=== PATIENT | female | born 1980 ===

== ENCOUNTER 2018-05-16 08:23 | Emergency (ER) | payer OTHER ==
[2018-05-16] MEDS ORDERED: ANTIVERT PO ONE (09:29)
[2018-05-16] MEDS ORDERED: ZOFRAN IV ONE (09:29)
[2018-05-16] MEDS ORDERED: NACL 0.9% 500 ML 500 ML IV ONE (09:29)
--- NOTE | 2018-05-16 09:34 | Emergency Department Report ---
HPI - General Chief Complaint: Nausea/Vomiting/Diarrhea Time Seen by Provider: 05/16/18 09:18 - [facility] HPI: Room 18 The patient is a 38-year-old female presenting with chief complaint of nausea and vomiting. Patient's symptoms began yesterday with nausea and vomiting and dizziness with movement. Patient denies diarrhea. Patient denies headache chest pain or abdominal pain. The patient's last meal part to the onset of her symptoms included a hammer soup that was eaten by others. No one else developed nausea and vomiting. The patient states her symptoms began approximately 4 hours after her last meal. Location: [See above] Duration: Onset yesterday Quality: Nausea Severity: Moderate Modifying factors: [see above] Context: [see above] Mode of transportation: [not driving] ED Past Medical Hx - Past Medical History Previous Medical History?: Yes - Surgical History Past Surgical History?: Yes Hx Open Heart Surgery: Yes (cardiac valve repair/replacement?) - Family History Family history: no significant - Social History Smoking Status: Never Smoker Substance Use Type: None - Medications Home Medications: Home Medications Medication Instructions Recorded Confirmed Last Taken Type Meclizine [Antivert] 25 mg PO TID PRN #20 tablet 05/16/18 Unknown Rx Ondansetron [Zofran ODT TAB] 8 mg PO Q8HR #20 tab.rapdis 05/16/18 Unknown Rx ED Review of Systems ROS: Stated complaint: N/V Other details as noted in HPI Constitutional: no symptoms reported Eyes: denies: eye pain ENT: denies: throat pain Respiratory: no symptoms reported Cardiovascular: denies: chest pain Endocrine: no symptoms reported Gastrointestinal: nausea, vomiting. denies: abdominal pain Genitourinary: denies: dysuria Musculoskeletal: denies: back pain Neurological: vertigo. denies: headache Physical Exam - Physical Exam Vital Signs: Vital Signs 05/16/18 08:28 Temperature 97.9 F Pulse Rate 65 Respiratory 16 Rate Blood Pressure 124/57 O2 Sat by Pulse 98 Oximetry Physical Exam: GENERAL: The patient is well-developed well-nourished female lying on stretcher with eyes closed appearing to be in mild discomfort. [] HEENT: Normocephalic. Atraumatic. Extraocular motions are intact. Patient has moist mucous membranes. No nystagmus NECK: Supple. Trachea midline CHEST/LUNGS: Clear to auscultation. There is no respiratory distress noted. HEART/CARDIOVASCULAR: Regular. There is no tachycardia. There is a 3/6 systolic murmur ABDOMEN: Abdomen is soft, nontender. Patient has normal bowel sounds. There is no abdominal distention. SKIN: There is no rash. There is no edema. There is no diaphoresis. NEURO: The patient is awake, alert, and oriented. The patient is cooperative. The patient has no focal neurologic deficits. The patient has normal speech. Cranial nerves II through XII grossly intact, no drift. No dysmetria noted with [id number] bilaterally MUSCULOSKELETAL: There is no evidence of acute injury. ED Course Vital Signs 05/16/18 08:28 Temperature 97.9 F Pulse Rate 65 Respiratory 16 Rate Blood Pressure 124/57 O2 Sat by Pulse 98 Oximetry - Reevaluation(s) Reevaluation #1: 05/16/18 12:11 Family states patient voiced she felt better after IV fluids ED Medical Decision Making - Lab Data Result diagrams: 05/16/18 09:40 05/16/18 09:40 Laboratory Tests 05/16/18 05/16/18 05/16/18 09:40 09:40 09:40 WBC 5.0 RBC 5.48 H Hgb 13.9 Hct 41.9 MCV 77 L MCH 25 L MCHC 33 RDW 13.8 Plt Count 216 Lymph % (Auto) 20.7 [place] % (Auto) 9.2 H Eos % (Auto) 0.2 Baso % (Auto) 0.5 Lymph # 1.0 L [place] # 0.5 Eos # 0.0 Baso # 0.0 Seg Neutrophils % 69.4 Seg Neutrophils # 3.5 PT INR APTT Sodium 134 L Potassium 4.5 Chloride 98.9 Carbon Dioxide 24 Anion Gap 16 BUN 10 Creatinine 0.6 L Estimated GFR > 60 BUN/Creatinine Ratio 17 Glucose 99 Calcium 8.8 Total Bilirubin 0.90 AST 18 ALT 15 Alkaline Phosphatase 37 Total Creatine Kinase 100 CK-MB (CK-2) 2.0 CK-MB (CK-2) Rel Index 2.0 Troponin T < 0.010 Total Protein 7.3 Albumin 4.2 Albumin/Globulin Ratio 1.4 Lipase 16 HCG, Qual Negative 05/16/18 09:40 WBC RBC Hgb Hct MCV MCH MCHC RDW Plt Count Lymph % (Auto) [place] % (Auto) Eos % (Auto) Baso % (Auto) Lymph # [place] # Eos # Baso # Seg Neutrophils % Seg Neutrophils # PT 20.5 H INR 1.71 H APTT 41.1 H Sodium Potassium Chloride Carbon Dioxide Anion Gap BUN Creatinine Estimated GFR BUN/Creatinine Ratio Glucose Calcium Total Bilirubin AST ALT Alkaline Phosphatase Total Creatine Kinase CK-MB (CK-2) CK-MB (CK-2) Rel Index Troponin T Total Protein Albumin Albumin/Globulin Ratio Lipase HCG, Qual - EKG Data -: EKG Interpreted by Fl EKG shows normal: sinus rhythm Rate: normal - EKG Data When compared to previous EKG there are: previous EKG unavailable Interpretation: nonspecific ST-T wave shashank (T-wave inversion in lead V2) - Radiology Data Radiology results: report reviewed (CT head), image reviewed (CT head) [facility] [address] [id number] Cat Scan Report Signed Patient: NIKKI MURILLO MR#: [id number] : 1980 Acct:[id number] Age/Sex: 38 / F ADM Date: 05/16/18 Loc: ED Attending Dr: Ordering Physician: CATALINO FERNANDES MD Date of Service: 05/16/18 Procedure(s): CT head/brain wo con Accession Number(s): [id number] cc: CATALINO FERNANDES MD CT HEAD WITHOUT CONTRAST: HISTORY: Dizziness, nausea and vomiting. TECHNIQUE: Sequential 2.5mm CT images. COMPARISON: none. FINDINGS: Cerebral Parenchyma: Within normal limits. 5 mm dilated perivascular space versus focal chronic infarct is noted in the left anterior thalamus on image 25. Cerebellum: Within normal limits. Brainstem: Within normal limits. Ventricles: Normal. Sella: Normal. Extra-axial spaces: Normal. Basal Cisterns: Normal. Intracranial Hemorrhage: None. Midline Shift: None. Calvarium: Normal. Sinuses: Normal. Mastoid Air Cells: Normal. Visualized Orbits: Normal. IMPRESSION: No acute intracranial process is identified. Transcribed By: TTR Dictated By: TANK SALES JR, MD Electronically Authenticated By: TANK SALES JR, MD Signed Date/Time: 05/16/18 1013 DD/ 1013 TD/TT: 05/16/18 1013 - Differential Diagnosis vertigo, ICH, gastritis, pancreatitis Critical care attestation.: If time is entered above; I have spent that time in minutes in the direct care of this critically ill patient, excluding procedure time. ED Disposition Clinical Impression: Vertigo Disposition: DC-01 TO HOME OR SELFCARE Is pt being admited?: No Does the pt Need Aspirin: No Condition: Stable Instructions: Vertigo (ED) Additional Instructions: Return to the emergency department immediately should you develop worsening symptoms, fever, inability to tolerate food or liquid or any other concerns. Prescriptions: Meclizine [Antivert] 25 mg PO TID PRN #20 tablet PRN Reason: Vertigo Ondansetron [Zofran ODT TAB] 8 mg PO Q8HR #20 tab.gopaldis Referrals: NIRALI GARZA [Primary Care Provider] - 3-5 Days YANET DUNBAR MD [Staff Physician] - 3-5 Days (Dr. Dunbar is a neurologist. Please follow up with him for further evaluation) Time of Disposition: 12:13
[2018-05-16 10:05] LABS: Basophils % (Auto) 0.5 % (0.0-1.8); Eosinophils % (Auto) 0.2 % (0.0-4.3); Hematocrit 41.9 % (30.3-42.9); Hemoglobin 13.9 gm/dl (10.1-14.3); Lymphocytes % (Auto) 20.7 % (13.4-35.0); Mean Corpuscular HGB Conc 33 % (30-34); Mean Corpuscular Volume 77 fl (79-97); Monocytes # (Auto) 0.5 K/mm3 (0.0-0.8); Monocytes % (Auto) 9.2 % (0.0-7.3); Platelet Count 216 K/mm3 (140-440); Red Blood Count 5.48 M/mm3 (3.65-5.03); Red Cell Distribution Width 13.8 % (13.2-15.2)
--- NOTE | 2018-05-16 10:16 | Cat Scan Report ---
CT HEAD WITHOUT CONTRAST: HISTORY: Dizziness, nausea and vomiting. TECHNIQUE: Sequential 2.5mm CT images. COMPARISON: none. FINDINGS: Cerebral Parenchyma: Within normal limits. 5 mm dilated perivascular space versus focal chronic infarct is noted in the left anterior thalamus on image 25. Cerebellum: Within normal limits. Brainstem: Within normal limits. Ventricles: Normal. Sella: Normal. Extra-axial spaces: Normal. Basal Cisterns: Normal. Intracranial Hemorrhage: None. Midline Shift: None. Calvarium: Normal. Sinuses: Normal. Mastoid Air Cells: Normal. Visualized Orbits: Normal. IMPRESSION: No acute intracranial process is identified.
[2018-05-16 10:24] LABS: Alanine Aminotransferase 15 units/L (7-56); Albumin 4.2 g/dL (3.9-5); BUN/Creatinine Ratio 17; Blood Urea Nitrogen 10 mg/dL (7-17); Calcium 8.8 mg/dL (8.4-10.2); Hemolysis Index 15
[2018-05-16 10:25] LABS: INR 1.71 (0.87-1.13)
[2018-05-16 10:26] LABS: Partial Thromboplastin Time 41.1 Sec. (24.2-36.6)
[2018-05-16 11:27] VITALS: BP 108/65
[2018-05-16] MEDS ORDERED: NACL 0.9% 1000 ML 1,000 ML IV ONE (12:10)
== END 2018-05-16 14:15 | disposition home or self-care (01) ==
LOC: ED 08:23
DX: R42 Dizziness and giddiness (principal); R11.2 Nausea with vomiting, unspecified
CPT/HCPCS: 36415; 70450; 80053; 82550; 82553; 83690; 84484; 84703; 85025; 85610; 85730; 93005; 93010; 96361; 96374; 99284; J2405; J7030; J7040

== ENCOUNTER 2019-08-11 14:04 | Emergency (ER) | payer OTHER ==
[2019-08-11 14:14] VITALS: BP 124/85
--- NOTE | 2019-08-11 15:05 | Emergency Department Report ---
ED Recheck HPI - General Chief Complaint: Recheck/Abnormal Lab/Rx Stated Complaint: RAPID HEART BEAT Time Seen by Provider: 08/11/19 15:04 Source: patient Mode of arrival: Ambulatory Limitations: Language Barrier - History of Present Illness Initial Comments: Patient is a 39-year-old female that comes to the emergency room from [facility] to have her INR rechecked. I spoke with Dr. Austen jose and the INR was 4 in the office. They sent her to the ER for reevaluation. Patient has mild petechiae on her leg and some mild gingival bleeding. She is not tachycardic or hypotensive but she is pale. Patient has a mechanical mitral valve and has been on Coumadin since 2006. Her goal INR is 2.5-3.5. She takes no other medications on a daily basis. Patient has no external bleeding. She denies any abdominal pain. She denies hematuria. She denies bloody stools. Last menstrual period was 07/23/2019. Patient takes Coumadin daily she alternates between 7.5 and 5 mg. She is due for 7.5 tonight. Patient is alert and oriented with no focal deficit. MD Complaint: abnormal lab Symptoms Since Prior Visit: no new symptoms Associated Symptoms: none - Related Data Allergies Allergy/AdvReac Type Severity Reaction Status Date / Time No Known Allergies Allergy Unverified 05/16/18 11:14 ED Review of Systems ROS: Stated complaint: RAPID HEART BEAT Other details as noted in HPI Comment: All other systems reviewed and negative ED Past Medical Hx - Past Medical History Previous Medical History?: Yes - Surgical History Past Surgical History?: Yes Hx Open Heart Surgery: Yes (MECHANICAL MV [place]ACED [place] 2006) - Family History Family history: no significant - Social History Smoking Status: Never Smoker Substance Use Type: None ED Physical Exam - General Limitations: Language Barrier General appearance: alert, in no apparent distress - Head Head exam: Present: atraumatic, normocephalic - Eye Eye exam: Present: normal appearance - ENT ENT exam: Present: mucous membranes moist - Neck Neck exam: Present: normal inspection, other (mild gingival bleeding) - Respiratory Respiratory exam: Present: normal lung sounds bilaterally. Absent: respiratory distress - Cardiovascular Cardiovascular Exam: Present: regular rate, normal rhythm. Absent: systolic murmur, diastolic murmur, rubs, gallop - GI/Abdominal GI/Abdominal exam: Present: soft, normal bowel sounds - Extremities Exam Extremities exam: Present: normal inspection - Back Exam Back exam: Present: normal inspection - Neurological Exam Neurological exam: Present: alert, oriented X3 - Psychiatric Psychiatric exam: Present: normal affect, normal mood - Skin Skin exam: Present: warm, dry, intact, petechiae, pallor. Absent: rash ED Course Vital Signs 08/11/19 14:10 Temperature 97.9 F Pulse Rate 93 H Respiratory 16 Rate Blood Pressure 124/85 O2 Sat by Pulse 100 Oximetry - Reevaluation(s) Reevaluation #1: 08/11/19 1540 Blood pressure 104/68 with a map of 78, heart rate 74, oxygen saturation on room air 100%. ED Recheck MDM - Core Measures Measure Exclusions: not indicated - Differential Diagnosis Recheck of Abnormal Lab - Medical Decision Making discussed with Dr Ruslan huston at [facility] hold coumadin 2 days on take 5mg daily go to office in 1 week for recheck INR Hct is stable per [facility] Vital Signs 08/11/19 14:10 Temperature 97.9 F Pulse Rate 93 H Respiratory 16 Rate Blood Pressure 124/85 O2 Sat by Pulse 100 Oximetry Labs 08/11/19 08/11/19 08/11/19 14:58 14:58 14:58 WBC 13.4 H RBC 4.54 Hgb 9.9 L Hct 31.7 MCV 70 L MCH 22 L MCHC 31 RDW 14.5 Plt Count 519 H PT 44.3 H INR 4.78 H Sodium 137 Potassium 3.9 Chloride 97.3 L Carbon Dioxide 26 Anion Gap 18 BUN 12 Creatinine 0.8 Estimated GFR > 60 BUN/Creatinine Ratio 15 Glucose 99 Calcium 8.7 Total Bilirubin 0.40 AST 19 ALT 16 Alkaline Phosphatase 190 H Total Protein 7.9 Albumin 3.0 L Albumin/Globulin Ratio 0.6 Patient was given 1 L of normal saline while in the emergency room while we waited for her INR to return. Patient was pale. She denies chest pain or shortness of breath. Her hemoglobin was noted to be 9.9 and on prior ER visit was closer to 14. INR repeat was 4.78. The goal INR is 2.5-3.5. I have called Dr. Maurice. Hematocrit is unchanged over time from office notes. Patient is to hold Coumadin for 2 days. And then resume Coumadin at 5 mg daily and see his office on Saturday for recheck. She is also supposed to see a PCP to have her hemoglobin monitored. An supervisor customer services was used to be sure that the patient understands these discharge instructions. Patient being DC'd home with family members. She has written and verbal discharge instructions and verbalizes understanding. Critical care attestation.: If time is entered above; I have spent that time in minutes in the direct care of this critically ill patient, excluding procedure time. ED Disposition Clinical Impression: Supratherapeutic INR Disposition: DC- TO HOME OR SELFCARE Is pt being admited?: No Does the pt Need Aspirin: No Condition: Stable Instructions: Warfarin (By mouth) Additional Instructions: DO NOT TAKE COUMADIN/WARFARIN TODAY OR SATURDAY ON SATURDAY YOU WILL TAKE 5 MG - CONTINUE THIS DOSE DAILY NEXT SATURDAY SEE [facility] (WHERE YOU WERE TODAY) FOR INR RECHECK FOLLOW UP WITH PCP TO MONITOR YOUR HEMOGLOBIN TAKE THIS PAPER WITH YOU YOUR HGB TODAY WAS 9.9 AND IN 05/27 IT WAS 14 USE A SOFT TOOTH BRUSH AVOID HIGH RISK ACTIVITIES THAT WOULD MAKE YOU PRONE TO TYLENOL FOLLOW YOUR USUAL DIET- DO NOT VARY IT MUCH DAY TO DAY. THIS CAN AFFECT YOUR INR LEVEL Referrals: HARRY MATAMOROS MD [Staff Physician] - 3-5 Days MONALISA ALEJO MD [Staff Physician] - 3-5 Days Time of Disposition: 15:56
[2019-08-11 15:14] LABS: Hematocrit 31.7 % (30.3-42.9); Hemoglobin 9.9 gm/dl (10.1-14.3); Mean Corpuscular HGB Conc 31 % (30-34); Platelet Count 519 K/mm3 (140-440); Red Blood Count 4.54 M/mm3 (3.65-5.03); Red Cell Distribution Width 14.5 % (13.2-15.2)
[2019-08-11 15:19] LABS: Mean Corpuscular Volume 70 fl (79-97)
[2019-08-11 15:25] LABS: INR 4.78 (0.87-1.13)
[2019-08-11] MEDS ORDERED: SODIUM CHLORIDE 0.9% 1000 ML 1,000 ML IV ONE (15:32)
[2019-08-11 15:38] LABS: Alanine Aminotransferase 16 units/L (7-56); BUN/Creatinine Ratio 15; Blood Urea Nitrogen 12 mg/dL (7-17); Calcium 8.7 mg/dL (8.4-10.2); Hemolysis Index 0
[2019-08-11 16:22] LABS: Bacteria,Urine 2+ /HPF (Negative); Bilirubin,Urine NEG (Negative); Blood,Urine MOD (Negative); Color,Urine Straw (Yellow); HCG Qualitative,Urine Negative (Negative); Protein,Urine <15 mg/dL mg/dL (Negative); Urobilinogen,Urine < 2.0 mg/dL (<2.0)
== END 2019-08-11 17:56 | disposition home or self-care (01) ==
LOC: ED 14:04
DX: R79.1 Abnormal coagulation profile (principal)
CPT/HCPCS: 36415; 80053; 81001; 81025; 85027; 85610; 99283; J7030

== ENCOUNTER 2019-08-13 20:13 | Inpatient (IN) | payer OTHER ==
[2019-08-13 21:31] LABS: Hematocrit 30.5 % (30.3-42.9); Hemoglobin 9.8 gm/dl (10.1-14.3); Mean Corpuscular HGB Conc 32 % (30-34); Platelet Count 506 K/mm3 (140-440); Red Blood Count 4.42 M/mm3 (3.65-5.03); Red Cell Distribution Width 14.4 % (13.2-15.2)
[2019-08-13 21:34] LABS: Mean Corpuscular Volume 69 fl (79-97)
[2019-08-13 21:57] LABS: Alanine Aminotransferase 24 units/L (7-56); Albumin 3.5 g/dL (3.9-5); BUN/Creatinine Ratio 10; Blood Urea Nitrogen 7 mg/dL (7-17); Calcium 8.6 mg/dL (8.4-10.2); Hemolysis Index 3
[2019-08-13] MEDS ORDERED: SODIUM CHLORIDE 0.9% 1000 ML IV SOLN IV ONE (22:01)
[2019-08-13] MEDS ORDERED: CEFEPIME/NS 2 GM/100 ML 2 GM/100 ML BAG IV ONE (22:04)
--- NOTE | 2019-08-13 22:04 | Emergency Department Report ---
ED Fever HPI - General Chief Complaint: Weakness Stated Complaint: FEVER/SOB PUI?: Yes Time Seen by Provider: 08/13/19 21:46 Source: patient, recreation facilities supervisor Exam Limitations: language barrier - History of Present Illness Initial Comments: Patient is a 39-year-old female that presents emergency room with complaints of chills, fevers and shortness of breath and weakness and palpitations. Patient states that her symptoms been going on for 3 to 4 weeks. Patient states that she has not been tested for COVID. Patient states she has not traveled outside the country. Patient states that her symptoms are worsening. Patient states she is shaking from the chills. Patient states that her chills are intermittent. Patient states her shortness of breath is better with rest and worse with exertion. Patient states that her heart rate is better with rest and worse with exertion. Patient denies chest pain. Patient denies abdominal pain. Patient denies cough. Timing/Duration: week Fever Severity/Quality: subjective Fever Therapy GLUE WHEEL OPERATOR: none Associated Symptoms: shortness of breath, weakness. denies: abdominal pain, chest pain, confusion, cough, diaphoresis, headache, muscle aches, nausea/vomiting, rash, sore throat, stiff neck, syncope ED Review of Systems ROS: Stated complaint: FEVER/SOB Other details as noted in HPI Constitutional: chills, weakness. denies: fever Eyes: denies: eye pain, eye discharge, vision change ENT: denies: ear pain, throat pain Respiratory: shortness of breath, SOB with exertion, SOB at rest. denies: cough, wheezing Cardiovascular: denies: chest pain, palpitations Endocrine: no symptoms reported Gastrointestinal: denies: abdominal pain, nausea, diarrhea Genitourinary: denies: urgency, dysuria, discharge Musculoskeletal: denies: back pain, joint swelling, arthralgia Skin: denies: rash, lesions Neurological: weakness. denies: headache, paresthesias Psychiatric: denies: anxiety, depression Hematological/Lymphatic: denies: easy bleeding, easy bruising ED Past Medical Hx - Past Medical History Previous Medical History?: Yes Additional medical history: Valve replacement - Surgical History Hx Open Heart Surgery: Yes (MECHANICAL MV PLACED [place] HER [place] IN 2006) - Social History Smoking Status: Never Smoker ED Physical Exam - General Limitations: Language Barrier General appearance: alert, in no apparent distress - Head Head exam: Present: atraumatic, normocephalic - Eye Eye exam: Present: normal appearance - ENT ENT exam: Present: mucous membranes moist - Neck Neck exam: Present: normal inspection - Respiratory Respiratory exam: Present: normal lung sounds bilaterally. Absent: respiratory distress - Cardiovascular Cardiovascular Exam: Present: regular rate, normal rhythm. Absent: systolic murmur, diastolic murmur, rubs, gallop - GI/Abdominal GI/Abdominal exam: Present: soft, normal bowel sounds - Extremities Exam Extremities exam: Present: normal inspection - Back Exam Back exam: Present: normal inspection - Neurological Exam Neurological exam: Present: alert, oriented X3 - Psychiatric Psychiatric exam: Present: normal affect, normal mood - Skin Skin exam: Present: warm, dry, intact, normal color. Absent: rash ED Course Vital Signs 08/13/19 20:22 Temperature 98.8 F Pulse Rate 98 H Respiratory 24 Rate Blood Pressure 108/69 O2 Sat by Pulse 99 Oximetry - Reevaluation(s) Reevaluation #1: Initial evaluation done. Patient found to have a low blood pressure and tachycardia. Patient was given fluids. Patient have a sepsis protocol. It is suspected that the patient is COVID and personal protective equipment used in accordance with CDC and hospital guidelines. Patient placed on droplet isolation. Patient placed on oxygen. 08/13/19 21:57 Reevaluation #2: I discussed all results with patient. I discussed plan of care with patient. Patient agrees with plan of care and admission. Patient to be admitted to the hospitalist service. Patient continues to desat while resting. Patient blood pressure has improved with fluids. Patient's heart rate has improved with fluids. 08/13/19 23:54 - Consultations Consultation #1: Hospitalist consulted for admission. Hospitalist to admit patient. 08/13/19 23:54 Consultation #2: I discussed case with ID, Dr. Pino. Dr. Pino recommends admission and has no further recommendations except for COVID order set. 08/14/19 00:15 ED Medical Decision Making - Lab Data Result diagrams: 08/13/19 21:09 08/14/19 00:15 - EKG Data -: EKG Interpreted by Me EKG shows normal: sinus rhythm, axis, intervals, QRS complexes, ST-T waves Rate: tachycardia - Radiology Data Radiology results: report reviewed, image reviewed interpreted by me: CHEST 1 VIEW INDICATION: fever. sob. COMPARISON: None. FINDINGS: Support devices: None. Heart: Mild cardiac enlargement. Lungs/Pleura: Mild bilateral infiltrate greatest at the right perihilar region. Additional findings: None. IMPRESSION: 1. Mild cardiomegaly. 2. Suspect bilateral pneumonia to include atypical organisms. CT angio chest INDICATION / CLINICAL INFORMATION: Shortness of breath. TECHNIQUE: Axial CT images were obtained after injection of Omnipaque 350, 100 cc IV contrast using CTA protocol. 3 plane MIP / 3D reconstructions were produced. All CT scans at this location are performed using CT dose reduction for ALARA by means of automated exposure control. COMPARISON: None available. FINDINGS: Both lungs contain patchy infiltrate. Small effusions are noted. Negative for dense localized infiltrate or lung mass. No mediastinal mass or adenopathy. Cardiac dilatation and previous mitral valve replacement are noted. Negative for aneurysm, dissection or pulmonary embolus. Imaging of the upper limits of normal. IMPRESSION: 1. Patchy bilateral infiltrates. Pneumonia is favored over atypical edema. 2. Negative for pulmonary embolus. - Medical Decision Making Patient is a 39-year-old female that presents emergency room with complaints shortness of breath, cough, weakness and fever. Patient states symptoms started 3 to 4 weeks ago and are worsening. Patient found to be hypoxic. Patient found to be tachycardic and have a low blood pressure. Patient given fluids and placed on oxygen and vital signs improved. Patient had a CTA of the chest due to her shortness of breath. Patient had a chest x-ray done. Patient's chest x- ray shows a bilateral viral pneumonia. Patient CTA shows bilateral viral pneumonia no PE. Patient had labs done which showed an elevated WBC and anemia. COVID inpatient protocol placed in the system. Patient admitted to the hospitalist service. Patient given cefepime and Zithromax. ID consulted and recommendations received. - Differential Diagnosis Shortness of breath, coma, pneumonia, PE, fever, chills, prolonged fever, Critical Care Time: Yes Critical care time in (mins) excluding proc time.: 35 Critical care attestation.: If time is entered above; I have spent that time in minutes in the direct care of this critically ill patient, excluding procedure time. Critical Care Time: 35 minutes ED Disposition Clinical Impression: Palpitations, SOB (shortness of breath), Suspected COVID-19 virus infection, SIRS (systemic inflammatory response syndrome), Tachycardia, Hypoxia Fever Qualifiers: Fever type: unspecified Qualified Code(s): R50.9 - Fever, unspecified Pneumonia Qualifiers: Pneumonia type: due to unspecified organism Laterality: bilateral Lung location: lower lobe of lung Qualified Code(s): J18.9 - Pneumonia, unspecified organism Elevated WBC count Qualifiers: Leukocytosis type: unspecified Qualified Code(s): D72.829 - Elevated white blood cell count, unspecified Anemia Qualifiers: Anemia type: unspecified type Qualified Code(s): D64.9 - Anemia, unspecified Disposition: DC-09 OP ADMIT IP TO THIS HOSP Is pt being admited?: Yes Does the pt Need Aspirin: No Condition: Critical Time of Disposition: 23:47
[2019-08-13 22:29] LABS: Bacteria,Urine 2+ /HPF (Negative); Bilirubin,Urine NEG (Negative); Blood,Urine LG (Negative); Color,Urine Straw (Yellow); Protein,Urine <15 mg/dL mg/dL (Negative); Urobilinogen,Urine < 2.0 mg/dL (<2.0)
[2019-08-13 22:30] LABS: HCG Qualitative,Urine Negative (Negative)
[2019-08-13 22:32] LABS: Anisocytosis 1+; Basophils % (Manual) 0 % (0.0-1.8); Eosinophils % (Manual) 0 % (0.0-4.3); Hypochromasia 1+; Total Cells Counted 100
--- NOTE | 2019-08-13 23:21 | XRay Report ---
CHEST 1 VIEW INDICATION: fever. sob. COMPARISON: None. FINDINGS: Support devices: None. Heart: Mild cardiac enlargement. Lungs/Pleura: Mild bilateral infiltrate greatest at the right perihilar region. Additional findings: None. IMPRESSION: 1. Mild cardiomegaly. 2. Suspect bilateral pneumonia to include atypical organisms. Signer Name: Javy Whitman MD Signed: 08/13/2019 11:16 PM Workstation Name: [id number]
--- NOTE | 2019-08-13 23:35 | Cat Scan Report ---
CT angio chest INDICATION / CLINICAL INFORMATION: Shortness of breath. TECHNIQUE: Axial CT images were obtained after injection of Omnipaque 350, 100 cc IV contrast using CTA protocol . 3 plane MIP / 3D reconstructions were produced. All CT scans at this location are performed using C T dose reduction for ALARA by means of automated exposure control. COMPARISON: None available. FINDINGS: Both lungs contain patchy infiltrate. Small effusions are noted. Negative for dense localized infiltr ate or lung mass. No mediastinal mass or adenopathy. Cardiac dilatation and previous mitral valve rep lacement are noted. Negative for aneurysm, dissection or pulmonary embolus. Imaging of the upper limits of normal. IMPRESSION: 1. Patchy bilateral infiltrates. Pneumonia is favored over atypical edema. 2. Negative for pulmonary embolus. Signer Name: Javy Whitman MD Signed: 08/13/2019 11:30 PM Workstation Name: [id number]
--- NOTE | 2019-08-13 23:56 | History and Physical Report ---
History of Present Illness Date of examination: 08/14/19 History of present illness: 39-year-old woman with a history of valve replacement comes emergency room for evaluation. Patient states she has been having shortness of breath, fever and chills over the last 3 weeks. She has no cough. Also complaining of generalized weakness, denies sick contact, recent travel. Patient had x-ray and CT which shows bilateral pneumonia, he will be admitted for pneumonia, suspect Covid infection Review Of Systems: Constitutional: no weight loss, fever, chills Ears, eyes, nose, mouth and throat: no nasal congestion, no nasal discharge, no sinus pressure, blurry vision, diplopia Neck: No neck pain or rigidity. Cardiovascular: No palpitations, chest pain Respiratory: + shortness of breath, cough Gastrointestinal: No hematochezia Genitourinary : no dysuria, frequency Musculoskeletal: no muscle ache , joint pain Integumentary: no rash, no pruritis Neurological: no parathesias, focal weakness Endocrine: no cold or heat intolerance, no polyuria or polydipsia Hematologic/Lymphatic: no easy bruising, no easy bleeding, no gland swelling Allergic/Immunologic: no urticaria, no angioedema. PAST MEDICAL HISTORY: valve replacement PAST SURGICAL HISTORY: Valve replacement SOCIAL HISTORY: Denies alcohol, tobacco, drugs FAMILY HISTORY: Hypertension Medications and Allergies Allergies Allergy/AdvReac Type Severity Reaction Status Date / Time No Known Allergies Allergy Verified 08/13/19 23:57 Exam - Physical Exam Narrative exam: Gen. appearance: Patient lying in bed, no apparent distress HEENT: Normocephalic, atraumatic, pupils equally round and reactive to light, extraocular movement intact, and no sclericterus,. No JVD or thyromegaly or nodule,neck supple, no carotid bruit ,mucous membranes moist, no exudate or erythema Heart: S1, S2, regular rate and rhythm Lungs: Crackles bilaterally, breathing comfortable Abdomen: Positive bowel sounds, nontender, nondistended, no organomegaly Extremity: no edema, cyanosis, clubbing Skin: No rash, nodules, warm, dry Neuro: speech is fluent, moves extremities, sensory intact - Constitutional Vitals: Temp Pulse Resp BP Pulse Ox 98.8 F 98 H 24 108/69 99 08/13/19 20:22 08/13/19 20:22 08/13/19 20:22 08/13/19 20:22 08/13/19 20:22 Results - Labs CBC & Chem 7: 08/13/19 21:09 08/14/19 00:15 Labs: Abnormal lab results 08/13/19 08/13/19 08/13/19 Range/Units 21:09 21:09 22:07 WBC 18.1 H (4.5-11.0) K/mm3 Hgb 9.8 L (10.1-14.3) gm/dl MCV 69 L (79-97) fl MCH 22 L (28-32) pg Plt Count 506 H (140-440) K/mm3 Seg Neuts % (Manual) 90.0 H (40.0-70.0) % Lymphocytes % (Manual) 6.0 L (13.4-35.0) % Seg Neutrophils # Man 16.3 H (1.8-7.7) K/mm3 Lymphocytes # (Manual) 1.1 L (1.2-5.4) K/mm3 Sodium 131 L (137-145) mmol/L Chloride 94.9 L (98-107) mmol/L Glucose 122 H (65-100) mg/dL Alkaline Phosphatase 288 H (35-129) units/L Albumin 3.5 L (3.9-5) g/dL Urine pH 8.0 H (5.0-7.0) - Imaging and Cardiology Chest x-ray: report reviewed CT scan - chest: report reviewed Assessment and Plan Assessment Bilateral pneumonia/suspect COVID Start IV Rocephin, initiate COVID order sets Covid labs were ordered Placed on contact, droplet precautions Consult ID Valve replacement Follow PT/INR DVT prophylaxis
[2019-08-13] MEDS ORDERED: AZITHROMYCIN 500 MG in SODIUM CHLORIDE 0.9% 250ML 250 ML IV ONE (23:58)
[2019-08-14 01:36] LABS: INR 5.48 (0.87-1.13)
[2019-08-14 01:37] LABS: Partial Thromboplastin Time 119.1 Sec. (24.2-36.6)
[2019-08-14] MEDS ORDERED: ACETAMINOPHEN 325 MG TAB PO PRN (04:14)
[2019-08-14] MEDS ORDERED: ONDANSETRON 4 MG/2 ML INJ IV PRN (04:14)
[2019-08-14] MEDS ORDERED: SODIUM CHLORIDE 0.9% 1000 ML 1,000 ML IV SCH (04:15)
[2019-08-14 05:25] LABS: Basophils % (Auto) 0.2 % (0.0-1.8); Hematocrit 24.3 % (30.3-42.9); Hemoglobin 8.1 gm/dl (10.1-14.3); Lymphocytes # (Auto) 0.9 K/mm3 (1.2-5.4); Lymphocytes % (Auto) 5.3 % (13.4-35.0); Mean Corpuscular HGB Conc 33 % (30-34); Monocytes % (Auto) 6.5 % (0.0-7.3); Platelet Count 427 K/mm3 (140-440); Red Cell Distribution Width 14.4 % (13.2-15.2)
[2019-08-14 05:30] LABS: Mean Corpuscular Volume 69 fl (79-97)
[2019-08-14 05:43] LABS: BUN/Creatinine Ratio 9; Blood Urea Nitrogen 6 mg/dL (7-17); Calcium 8.3 mg/dL (8.4-10.2); Hemolysis Index 0
[2019-08-14 05:44] LABS: INR 5.45 (0.87-1.13); Partial Thromboplastin Time 119.5 Sec. (24.2-36.6)
[2019-08-14 06:11] LABS: C-Reactive Protein 21.2 mg/dL (0.00-1.30)
[2019-08-14] MEDS ORDERED: ALBUTEROL 2.5 MG/3 ML NEBU IH PRN (08:01)
--- NOTE | 2019-08-14 08:10 | Progress Note ---
Assessment and Plan Assessment and plan: --Acute hypoxic respiratory failure; On BiPAP, minimal response patient needs intubation ventilatory support --Bilateral pneumonia; possible COVID Empiric antibiotics, oxygen, getting intubated Follow cultures --Possible COVID-19; Tests ordered per protocol Contact and droplet isolation PPE implementation,ID consulted --Leukocytosis/sepsis Follow cultures, antibiotics ID consult, --Severe coagulopathy; supratherapeutic INR Monitor for any bleeding,, FFP, vitamin K if needed --Mechanical mitral valve replacement; on Coumadin Follows with [facility] Coumadin held, target INR between 2.5-3.5 Closely monitor, consult cardiology --DVT prophylaxis; SCDs --Restraints --Full CODE STATUS Patient is critically ill with poor prognosis We will discuss with the family when available Closely monitor the patient and adjust the management as needed Plan of care reviewed with the patient's nurse Critical care time 55 minutes History Interval history: Responded to code met. Patient was admitted with acute respiratory distress Bilateral pneumonia, possible COVID in isolation Went into sudden respiratory failure requiring BiPAP Severely hypoxic with no improvement on nasal cannula oxygen Patient needs intubation and transfer to ICU Patient is in acute distress, altered level of consciousness Hospitalist Physical - Constitutional Vitals: Temp Pulse Resp BP Pulse Ox 99.3 F 61 20 112/77 96 08/14/19 02:20 08/14/19 02:20 08/14/19 01:00 08/14/19 02:20 08/14/19 02:20 General appearance: Present: severe distress, well-nourished, other (Acute respiratory distress, hypoxic, tachypneic) - EENT Eyes: Present: PERRL. Absent: scleral icterus - Neck Neck: Present: supple, normal ROM - Respiratory Respiratory effort: labored Respiratory: bilateral: diminished, rhonchi, negative: rales, wheezing - Cardiovascular Rhythm: regular Heart Sounds: Present: S1 & S2 - Extremities Extremities: no ischemia, No edema - Abdominal General gastrointestinal: soft, non-tender, non-distended, normal bowel sounds - Integumentary Integumentary: Present: clear, warm - Psychiatric Psychiatric: other (Unresponsive) - Neurologic Neurologic: other (Unresponsive) Results - Labs CBC & Chem 7: 08/14/19 05:08 08/14/19 05:08 Labs: Laboratory Last Values WBC 16.2 K/mm3 (4.5-11.0) H 08/14/19 05:08 RBC 3.50 M/mm3 (3.65-5.03) L 08/14/19 05:08 Hgb 8.1 gm/dl (10.1-14.3) L 08/14/19 05:08 Hct 24.3 % (30.3-42.9) L D 08/14/19 05:08 MCV 69 fl (79-97) L 08/14/19 05:08 MCH 23 pg (28-32) L 08/14/19 05:08 MCHC 33 % (30-34) 08/14/19 05:08 RDW 14.4 % (13.2-15.2) 08/14/19 05:08 Plt Count 427 K/mm3 (140-440) 08/14/19 05:08 Lymph % (Auto) 5.3 % (13.4-35.0) L 08/14/19 05:08 [place] % (Auto) 6.5 % (0.0-7.3) 08/14/19 05:08 Eos % (Auto) 0.0 % (0.0-4.3) 08/14/19 05:08 Baso % (Auto) 0.2 % (0.0-1.8) 08/14/19 05:08 Lymph # 0.9 K/mm3 (1.2-5.4) L 08/14/19 05:08 [place] # 1.0 K/mm3 (0.0-0.8) H 08/14/19 05:08 Eos # 0.0 K/mm3 (0.0-0.4) 08/14/19 05:08 Baso # 0.0 K/mm3 (0.0-0.1) 08/14/19 05:08 Add Manual Diff Complete 08/13/19 21:09 Total Counted 100 08/13/19 21:09 Seg Neutrophils % 88.0 % (40.0-70.0) H 08/14/19 05:08 Seg Neuts % (Manual) 90.0 % (40.0-70.0) H 08/13/19 21:09 Band Neutrophils % 0 % 08/13/19 21:09 Lymphocytes % (Manual) 6.0 % (13.4-35.0) L 08/13/19 21:09 Reactive Lymphs % (Man) 0 % 08/13/19 21:09 Monocytes % (Manual) 4.0 % (0.0-7.3) 08/13/19 21:09 Eosinophils % (Manual) 0 % (0.0-4.3) 08/13/19 21:09 Basophils % (Manual) 0 % (0.0-1.8) 08/13/19 21:09 Metamyelocytes % 0 % 08/13/19 21:09 Myelocytes % 0 % 08/13/19 21:09 Promyelocytes % 0 % 08/13/19 21:09 Blast Cells % 0 % 08/13/19 21:09 Nucleated RBC % Not Reportable 08/13/19 21:09 Seg Neutrophils # 14.2 K/mm3 (1.8-7.7) H 08/14/19 05:08 Seg Neutrophils # Man 16.3 K/mm3 (1.8-7.7) H 08/13/19 21:09 Band Neutrophils # 0.0 K/mm3 08/13/19 21:09 Lymphocytes # (Manual) 1.1 K/mm3 (1.2-5.4) L 08/13/19 21:09 Abs React Lymphs (Man) 0.0 K/mm3 08/13/19 21:09 Monocytes # (Manual) 0.7 K/mm3 (0.0-0.8) 08/13/19 21:09 Eosinophils # (Manual) 0.0 K/mm3 (0.0-0.4) 08/13/19 21:09 Basophils # (Manual) 0.0 K/mm3 (0.0-0.1) 08/13/19 21:09 Metamyelocytes # 0.0 K/mm3 08/13/19 21:09 Myelocytes # 0.0 K/mm3 08/13/19 21:09 Promyelocytes # 0.0 K/mm3 08/13/19 21:09 Blast Cells # 0.0 K/mm3 08/13/19 21:09 WBC Morphology Not Reportable 08/13/19 21:09 Hypersegmented Neuts Not Reportable 08/13/19 21:09 Hyposegmented Neuts Not Reportable 08/13/19 21:09 Hypogranular Neuts Not Reportable 08/13/19 21:09 Smudge Cells Not Reportable 08/13/19 21:09 Toxic Granulation Not Reportable 08/13/19 21:09 Toxic Vacuolation Not Reportable 08/13/19 21:09 Dohle Bodies Not Reportable 08/13/19 21:09 Pelger-Huet Anomaly Not Reportable 08/13/19 21:09 Zohra Rods Not Reportable 08/13/19 21:09 Platelet Estimate Not Reportable 08/13/19 21:09 Clumped Platelets Not Reportable 08/13/19 21:09 Plt Clumps, EDTA Not Reportable 08/13/19 21:09 Large Platelets Not Reportable 08/13/19 21:09 Giant Platelets Not Reportable 08/13/19 21:09 Platelet Satelliting Not Reportable 08/13/19 21:09 Plt Morphology Comment Not Reportable 08/13/19 21:09 RBC Morphology Not Reportable 08/13/19 21:09 Dimorphic RBCs Not Reportable 08/13/19 21:09 Polychromasia Not Reportable 08/13/19 21:09 Hypochromasia 1+ 08/13/19 21:09 Poikilocytosis Not Reportable 08/13/19 21:09 Anisocytosis 1+ 08/13/19 21:09 Microcytosis 1+ 08/13/19 21:09 Macrocytosis Not Reportable 08/13/19 21:09 Spherocytes Not Reportable 08/13/19 21:09 Pappenheimer Bodies Not Reportable 08/13/19 21:09 Sickle Cells Not Reportable 08/13/19 21:09 Target Cells Not Reportable 08/13/19 21:09 Tear Drop Cells Not Reportable 08/13/19 21:09 Ovalocytes Not Reportable 08/13/19 21:09 Helmet Cells Not Reportable 08/13/19 21:09 [place] Bodies Not Reportable 08/13/19 21:09 [place] Rings Not Reportable 08/13/19 21:09 Mil Cells Not Reportable 08/13/19 21:09 Bite Cells Not Reportable 08/13/19 21:09 Crenated Cell Not Reportable 08/13/19 21:09 Elliptocytes Not Reportable 08/13/19 21:09 Acanthocytes (Spur) Not Reportable 08/13/19 21:09 Rouleaux Not Reportable 08/13/19 21:09 Hemoglobin C Crystals Not Reportable 08/13/19 21:09 Schistocytes Not Reportable 08/13/19 21:09 Malaria parasites Not Reportable 08/13/19 21:09 Syd Bodies Not Reportable 08/13/19 21:09 Hem Pathologist Commnt No 08/13/19 21:09 PT 47.9 Sec. (12.2-14.9) H 08/14/19 05:08 INR 5.45 (0.87-1.13) H* 08/14/19 05:08 APTT 119.5 Sec. (24.2-36.6) H* 08/14/19 05:08 D-Dimer 1104.80 ng/mlDDU (0-234) H 08/14/19 05:08 Sodium 134 mmol/L (137-145) L 08/14/19 05:08 Potassium 4.2 mmol/L (3.6-5.0) 08/14/19 05:08 Chloride 100.2 mmol/L (98-107) 08/14/19 05:08 Carbon Dioxide 21 mmol/L (22-30) L 08/14/19 05:08 Anion Gap 17 mmol/L 08/14/19 05:08 BUN 6 mg/dL (7-17) L 08/14/19 05:08 Creatinine 0.7 mg/dL (0.7-1.2) 08/14/19 05:08 Estimated GFR > 60 ml/min 08/14/19 05:08 BUN/Creatinine Ratio 9 % 08/14/19 05:08 Glucose 130 mg/dL (65-100) H 08/14/19 05:08 POC Glucose 130 (70-105) H 08/14/19 07:51 Lactic Acid 1.10 mmol/L (0.7-2.0) 08/14/19 01:16 Calcium 8.3 mg/dL (8.4-10.2) L 08/14/19 05:08 Ferritin 195.0 ng/mL (13.0-400.0) 08/14/19 05:08 Total Bilirubin 0.80 mg/dL (0.1-1.2) 08/13/19 21:09 AST 29 units/L (5-40) 08/13/19 21:09 ALT 24 units/L (7-56) 08/13/19 21:09 Alkaline Phosphatase 288 units/L (35-129) H 08/13/19 21:09 Lactate Dehydrogenase 196 units/L (91-180) H 08/14/19 05:08 Troponin T < 0.010 ng/mL (0.00-0.029) 08/13/19 22:27 C-Reactive Protein 21.20 mg/dL (0.00-1.30) H 08/14/19 05:08 Total Protein 7.7 g/dL (6.3-8.2) 08/13/19 21:09 Albumin 3.5 g/dL (3.9-5) L 08/13/19 21:09 Albumin/Globulin Ratio 0.8 % 08/13/19 21:09 Urine Color Straw (Yellow) 08/13/19 22:07 Urine Turbidity Clear (Clear) 08/13/19 22:07 Urine pH 8.0 (5.0-7.0) H 08/13/19 22:07 Ur Specific [place] 1.006 (1.003-1.030) 08/13/19 22:07 Urine Protein <15 mg/dl mg/dL (Negative) 08/13/19 22:07 Urine Glucose (UA) Neg mg/dL (Negative) 08/13/19 22:07 Urine Ketones Neg mg/dL (Negative) 08/13/19 22:07 Urine Blood Lg (Negative) 08/13/19 22:07 Urine Nitrite Neg (Negative) 08/13/19 22:07 Urine Bilirubin Neg (Negative) 08/13/19 22:07 Urine Urobilinogen < 2.0 mg/dL (<2.0) 08/13/19 22:07 Ur Leukocyte Esterase Neg (Negative) 08/13/19 22:07 Urine WBC (Auto) 1.0 /HPF (0.0-6.0) 08/13/19 22:07 Urine RBC (Auto) 53.0 /HPF (0.0-6.0) 08/13/19 22:07 U Epithel Cells (Auto) 3.0 /HPF (0-13.0) 08/13/19 22:07 Urine Bacteria (Auto) 2+ /HPF (Negative) 08/13/19 22:07 Urine HCG, Qual Negative (Negative) 08/13/19 22:07 Microbiology: Microbiology 08/13/19 22:27 Peripheral/Venous Blood Culture - Preliminary Culture in Progress 08/13/19 22:27 Peripheral/Venous Blood Culture - Preliminary Culture in Progress Mark/IV: Voiding Method Toilet IV Catheter Type [Left INT / Saline Lock Antecubital] Active Medications - Current Medications Current Medications: Generic Name Dose Route Start Last Admin Trade Name Freq PRN Reason Stop Dose Admin Acetaminophen 650 mg 08/14/19 04:14 Tylenol PO Q4H PRN Pain MILD(1-3)/Fever >100.5/DOWNING Sodium Chloride 1,000 mls @ 75 mls/hr 08/14/19 04:15 Nacl 0.9% 1000 Ml IV DIRECT JOANA Ceftriaxone Sodium 2 gm in 100 mls @ 200 mls/hr 08/14/19 10:00 Rocephin/Ns 2 Gm/100 Ml IV Q24HR [facility] Protocol Ondansetron HCl 4 mg 08/14/19 04:14 Zofran IV Q8H PRN Nausea And Vomiting Sodium Chloride 10 ml 08/14/19 10:00 Sodium Chloride Flush Syringe 10 Ml IV BID JOANA Sodium Chloride 10 ml 08/14/19 04:14 Sodium Chloride Flush Syringe 10 Ml IV PRN PRN LINE FLUSH
[2019-08-14] MEDS ORDERED: fentaNYL DRIP Premix 2,000 MCG/100 ML BAG IV ONE (08:59)
[2019-08-14] MEDS ORDERED: MINERAL OIL/PETROLATUM, WHITE OPHTH OINT 3.5 GM OU PRN (09:19)
[2019-08-14] MEDS ORDERED: fentaNYL 100 MCG/2 ML INJ IV PRN (09:19)
[2019-08-14] MEDS ORDERED: LIP THERAPY VASELINE TP PRN (09:19)
--- NOTE | 2019-08-14 09:23 | Anesthesia Consultation ---
Anesthesia Consult and Med Hx - Airway Anesthetic Teeth Evaluation: Poor ROM Head & Neck: Adequate Mental/Hyoid Distance: Adequate Mallampati Class: Class II Intubation Access Assessment: Probably Good - Pulmonary Exam CTA: No - Cardiac Exam Cardiac Exam: RRR - Pre-Operative Health Status ASA Pre-Surgery Classification: ASA3, Emergency Proposed Anesthetic Plan: TIVA - Pre-Anesthesia Comment Pre-Anesthesia Comments: Called to ICU for urgent intubation. Probably COVID 19 postive. Report given by RN. Chart reviewed after intubation due to urgency. - Pulmonary Hx Asthma: No Hx Pneumonia: No (Possible COVID 19 Positive) - Central Nervous System Hx Psychiatric Problems: No - Other Systems Hx Cancer: No
--- NOTE | 2019-08-14 09:32 | Event Note ---
Date: 08/14/19 Called for urgent intubation on probably COVID 19 positive patient in respiratory distress.A report was given by the RN. The chart was reviewed after intubation. Pt is 39 yo female in respiratory distress. SaO2 93 %, RR 20s, HR 113, BP 131/73. On BIPAP. Pt is unresponsive to questions. 20 G IV started in left hand. Pt preoxygenated by BIPAP. After all equipment and monitors established and patient identified, a rapid sequence induction withOUT bagging patient was performed. Katie Bernal CRNA used a MAC 3 glidescope and visualized the vocals cords without problem. It is of note that the mouth was very bloody, mostlly dry blood. Positive for bilateral breath sounds, positive ETCO2. Vitals post procedure were BP 138/91, HR 114, SaO2 100%, RR per Ambu to maintain saturations. Anesthesia was dismissed after intubation and report given to RN and respiratory therapist. No ventilator in room at the time and patient being transported to more acute area of ICU. COVID 19 protocol was followed by anesthesia the entire time. Emmett Bernal CRNA
[2019-08-14] MEDS ORDERED: fentaNYL DRIP Premix 2,000 MCG/100 ML BAG IV SCH (10:00)
[2019-08-14] MEDS ORDERED: cefTRIAXone/NS 2 GM/100 ML 2 GM/100 ML BAG IV SCH (10:00)
[2019-08-14] MEDS ORDERED: FAMOTIDINE 20 MG/2 ML INJ IV SCH (10:00)
[2019-08-14] MEDS ORDERED: ENOXAPARIN 40 MG/0.4 ML INJ SUB-Q SCH (10:00)
[2019-08-14] MEDS ORDERED: ENOXAPARIN 30 MG/0.3 ML INJ SUB-Q SCH (10:00)
[2019-08-14] MEDS ORDERED: LORazepam 2 MG/ML VIAL IV PRN (10:10)
[2019-08-14] MEDS ORDERED: propofoL 200 MG/20 ML VIAL IV ONE (10:13)
[2019-08-14] MEDS ORDERED: SUCCINYLCHOLINE CHLORIDE 200 MG/10 ML INJ MDV ONE (10:31)
--- NOTE | 2019-08-14 10:31 | Event Note ---
Date: 08/14/19 Called back to ICU for reintubation. Pt self extubated herself. History as before. HR 120, BP88/54, RR 20s, Sa02 84% Propofol 200mg and Succinylcholine given. MAC3 glidescope with 7.5 ETT. by Nani Ricketts MD + ETCO2 Sa02 100% HR 110 BP 86/40 Pt tolerated procedure well. Emmett Anand MD
[2019-08-14] MEDS ORDERED: NORepinephrine/NS 4 MG-250 ML 4 MG/250 ML BAG IV ONE (10:35)
[2019-08-14] MEDS: NORepinephrine/NS 4 MG-250 ML 4 MG/250 ML BAG IV SCH ×4 (11:00→22:23)
[2019-08-14] MEDS ORDERED: LORazepam 100 MG in SODIUM CHLORIDE 0.9% 50 ML, EMPTY BAG 0 ML IV SCH (11:00)
--- NOTE | 2019-08-14 11:37 | Procedure Note ---
Date of procedure: 08/14/19 Pre-op diagnosis: Hypotension Post-op diagnosis: same Procedure: Right IJ placement for vasopressor therapy Procedure done emergently as patient was intubated and sedated earlier this am for worsening respiratory failure. Using the ultrasound, right IJ identified. After proper gowning, draping and neck prep area, [address] helenian triple lumen catheter was placed using seldinger technique. Once catheter was threaded, all ports darrell and flushed with no problems. Biopatch placed and sutured in. Dressing placed by Nursing and awaiting stat CXR to confirm placement and rule out any possible complications from this. Overall tolerated well with no immediate complications. Anesthesia: local Surgeon: MARTHA HAIRSTON Estimated blood loss: none Pathology: none Condition: critical Disposition: ICU
--- NOTE | 2019-08-14 11:44 | Consultation ---
History of Present Illness Consult date: 08/14/19 Requesting physician: ALANNA GODFREY Reason for consult: dyspnea, hypoxemia, other (acute respiratory failure) History of present illness: 39 y/o female with history of mechanical heart valve on coumadin therapy, admitted with dyspnea on exertion. Patient was recently seen in the ED on 08/10 sent by [facility] from their office to have INR checked. It was greater than 4 then they advised her to hold it for two days then restart. Patient presented last night nigh with worsening shortness of breath. CXR showed bilateral alveolar filling pattern but no definite areas of infiltrate or consolidation. No fever in ED but per patient has been having chills for weeks. No COVID contacts that she is aware of, and no recent travel. Was started on bipap and admitted to [facility]. IMS called this am around 7:50 for consult as patient was unresponsive on bipap and required intubation. Was intubated successfully by anesthesia but then self extubated and was reintubated again around 10:00. After this, became hypotensive so right IJ was placed by me. Awaitng CXR confirmation now. Remainder is negative. Past History Past Medical History: other (Valvular heart disease) Past Surgical History: valve replacement Social history: other (unknown) Family history: other (unknown) Medications and Allergies Allergies Allergy/AdvReac Type Severity Reaction Status Date / Time No Known Allergies Allergy Verified 08/13/19 23:57 Active Meds: Active Medications Acetaminophen (Tylenol) 650 mg PO Q4H PRN PRN Reason: Pain MILD(1-3)/Fever >100.5/DOWNING Albuterol (Proventil) 2.5 mg IH Q4HRT PRN PRN Reason: Shortness Of Breath Famotidine (Pepcid) 20 mg IV BID JOANA Fentanyl (Sublimaze) 50 mcg IV Q10MIN PRN PRN Reason: ANALGESIA Hydrophilic Ointment (Vaseline Lip Therapy) 1 applic TP Q2HR PRN PRN Reason: Dry Lips Sodium Chloride (Nacl 0.9% 1000 Ml) 1,000 mls @ 75 mls/hr IV DIRECT JOANA Ceftriaxone Sodium (Rocephin/Ns 2 Gm/100 Ml) 2 gm in 100 mls @ 200 mls/hr IV Q24HR JOANA; Protocol Fentanyl Citrate (Fentanyl Drip Premix) 2,000 mcg in 100 mls @ 2.87 mls/hr IV TITR JOANA; Protocol Propofol (Diprivan 10 Mg/Ml) 1,000 mg in 100 mls @ 1.722 mls/hr IV TITR JOANA; Protocol Midazolam HCl 100 mg/ Sodium (Chloride) 100 mls @ 2 mls/hr IV TITR JOANA; Protocol Lorazepam (Ativan) 2 mg IV Q10MIN PRN PRN Reason: Agitation Multi-Ingred Cream/Lotion/Oil/Oint (Artificial Tears Ophth Oint) 1 applic OU Q4HR PRN PRN Reason: Dry Eye(s) Ondansetron HCl (Zofran) 4 mg IV Q8H PRN PRN Reason: Nausea And Vomiting Sodium Chloride (Sodium Chloride Flush Syringe 10 Ml) 10 ml IV BID JOANA Sodium Chloride (Sodium Chloride Flush Syringe 10 Ml) 10 ml IV PRN PRN PRN Reason: LINE FLUSH Review of Systems ROS unobtainable: due to endotracheal tube, due to mental status Physical Examination Vital signs: Vital Signs Temp Pulse Resp BP Pulse Ox 98.8 F 98 H 24 108/69 99 08/13/19 20:22 08/13/19 20:22 08/13/19 20:22 08/13/19 20:22 08/13/19 20:22 General appearance: other (sedated on the vent, critically ill) Eyes: non-icteric ENT: other (orally intubated) Neck: supple Effort: normal Ascultation: Bilateral: rales Percussion: Bilateral: not dull Cardiovascular: other (sinus tachycardia) Extremities: pink and warm, pulses normal unable to assess Results - Laboratory Findings CBC and BMP: 08/14/19 05:08 08/14/19 05:08 PT/INR, D-dimer PT 47.9 Sec. (12.2-14.9) H 08/14/19 05:08 INR 5.45 (0.87-1.13) H* 08/14/19 05:08 D-Dimer 1104.80 ng/mlDDU (0-234) H 08/14/19 05:08 Abnormal lab findings: Abnormal Labs 08/13/19 08/13/19 08/13/19 21:09 21:09 22:07 WBC 18.1 H RBC Hgb 9.8 L Hct MCV 69 L MCH 22 L Plt Count 506 H Lymph % (Auto) Lymph # [place] # Seg Neutrophils % Seg Neuts % (Manual) 90.0 H Lymphocytes % (Manual) 6.0 L Seg Neutrophils # Seg Neutrophils # Man 16.3 H Lymphocytes # (Manual) 1.1 L PT INR APTT D-Dimer Sodium 131 L Chloride 94.9 L Carbon Dioxide BUN Glucose 122 H POC Glucose Calcium Alkaline Phosphatase 288 H Lactate Dehydrogenase C-Reactive Protein Albumin 3.5 L Urine pH 8.0 H 08/14/19 08/14/19 08/14/19 00:15 00:15 05:08 WBC RBC Hgb Hct MCV MCH Plt Count Lymph % (Auto) Lymph # [place] # Seg Neutrophils % Seg Neuts % (Manual) Lymphocytes % (Manual) Seg Neutrophils # Seg Neutrophils # Man Lymphocytes # (Manual) PT 48.1 H 47.9 H INR 5.48 H* 5.45 H* APTT 119.1 H* 119.5 H* D-Dimer 960.34 H 1104.80 H Sodium Chloride Carbon Dioxide BUN Glucose 120 H POC Glucose Calcium Alkaline Phosphatase Lactate Dehydrogenase 193 H C-Reactive Protein 22.00 H Albumin Urine pH 08/14/19 08/14/19 08/14/19 05:08 05:08 05:08 WBC 16.2 H RBC 3.50 L Hgb 8.1 L Hct 24.3 L D MCV 69 L MCH 23 L Plt Count Lymph % (Auto) 5.3 L Lymph # 0.9 L [place] # 1.0 H Seg Neutrophils % 88.0 H Seg Neuts % (Manual) Lymphocytes % (Manual) Seg Neutrophils # 14.2 H Seg Neutrophils # Man Lymphocytes # (Manual) PT INR APTT D-Dimer Sodium 134 L Chloride Carbon Dioxide 21 L BUN 6 L Glucose 130 H POC Glucose Calcium 8.3 L Alkaline Phosphatase Lactate Dehydrogenase 196 H C-Reactive Protein 21.20 H Albumin Urine pH 08/14/19 07:51 WBC RBC Hgb Hct MCV MCH Plt Count Lymph % (Auto) Lymph # [place] # Seg Neutrophils % Seg Neuts % (Manual) Lymphocytes % (Manual) Seg Neutrophils # Seg Neutrophils # Man Lymphocytes # (Manual) PT INR APTT D-Dimer Sodium Chloride Carbon Dioxide BUN Glucose POC Glucose 130 H Calcium Alkaline Phosphatase Lactate Dehydrogenase C-Reactive Protein Albumin Urine pH - Diagnostic Findings Chest x-ray: image reviewed CT scan - chest: image reviewed Assessment and Plan 39 y/o female with acute respiratory failure, etiology secondary to pneumonia, vs edema vs blood and supratherapeutic INR with mechanical valve. 1. Hold of FFP. Do not want to overcorrect in regards to INR. Would only do this in emergent situation as full reversal could kill the patient 2. Daily INR's 3. Currently on PEEP of 10 and FiO2 at 100%. Awaiting ABG and Art Line 4. Await swab for COVID, although low suspicion given CXR and CT pattern. Once negative will bronch 5. Will check BNP as well and if COVID negative, will request 2 D echo. No consult needed currently from [facility] at this time. 6. Transfuse if HgB drops below 7 8. Wean vasopressors for MAPs> 65 Guarded prognosis. CCT 31 minutes.
[2019-08-14] MEDS ORDERED: MIDAZOLAM 100 MG in SODIUM CHLORIDE 0.9% 80 ML IV SCH (12:00)
[2019-08-14] MEDS ORDERED: SODIUM CHLORIDE 0.9% 1000 ML 2,000 ML IV ONE (12:18)
--- NOTE | 2019-08-14 12:23 | XRay Report ---
ABDOMEN 1 VIEW 11:50 AM INDICATION / CLINICAL INFORMATION: NG tube placement. COMPARISON: None available. FINDINGS: TUBES / LINES: There is a nasogastric tube with the tip overlying the distal gastric body and the pro ximal sidehole well below the gastroesophageal junction. BOWEL GAS PATTERN: No significant abnormality. FREE AIR / EXTRALUMINAL GAS: None seen. ADDITIONAL FINDINGS: No significant additional findings. IMPRESSION: Nasogastric tube tip overlies the distal gastric body. Signer Name: Tani Anand MD Signed: 08/14/2019 12:18 PM Workstation Name: [email or web address]
--- NOTE | 2019-08-14 12:29 | XRay Report ---
CHEST 1 VIEW 11:54 AM INDICATION / CLINICAL INFORMATION: ETT placement/CVL placement.. COMPARISON: Yesterday. FINDINGS: SUPPORT DEVICES: There is a new endotracheal tube with the tip approximately 4.5 cm above the matye. There is a nasogastric tube coursing into the distal stomach with the tip not seen. A right jugular CVL is now present with the tip overlying the distal SVC. HEART / MEDIASTINUM: Median sternotomy, mitral valve prosthesis and cardiomegaly. LUNGS / PLEURA: There is moderately severe patchy consolidation and groundglass opacity throughout cecil th lungs, significantly increased. Air bronchograms are present in the left lower lobe and right uppe r lobe. No significant pleural effusion. No pneumothorax. ADDITIONAL FINDINGS: No significant additional findings. IMPRESSION: 1. Significant increase in multifocal parenchymal opacities, likely related to progressive pneumonia. 2. Multiple tubes and catheters without complication. Signer Name: Tani Anand MD Signed: 08/14/2019 12:25 PM Workstation Name: [id number]
--- NOTE | 2019-08-14 13:43 | Consultation ---
History of Present Illness - Reason for Consult Consult date: 08/14/19 - History of Present Illness 39 yo F PMhx mitral valve replacement 2006 presented to the hospital with complaints of fevers, SOB, and weakness. She notes her symptoms began approximately 3-4 weeks prior to admission. She has not recently travelleed and denies any known COVID contacts. She had been to see her dining services manager at [facility], and they sent her here for INR checking (which was supratherapeutic). She was at home for a couple days after that before needing to come in with 1 day of acutely worsened SOB. She was intubated in the ER, and self-extubated before needing to be reintubated. Febrile to 101 with a white count of 16 and an associated lymphopenia. She is currently receiving ceftriaxone and azithromycin. Blood cultures currently pending. Imaging personally reviewed: Chest x-ray: Multifocal parenchymal opacities. Chest CTA: Patchy bilateral infiltrates. Past History Past Medical History: other (Valvular heart disease) Past Surgical History: valve replacement Social history: other (unknown) Family history: other (unknown) Medications and Allergies Allergies Allergy/AdvReac Type Severity Reaction Status Date / Time No Known Allergies Allergy Verified 08/13/19 23:57 Active Meds: Active Medications Acetaminophen (Tylenol) 650 mg PO Q4H PRN PRN Reason: Pain MILD(1-3)/Fever >100.5/DOWNING Albuterol (Proventil) 2.5 mg IH Q4HRT PRN PRN Reason: Shortness Of Breath Famotidine (Pepcid) 20 mg IV BID JOANA Last Admin: 08/14/19 13:04 Dose: 20 mg Documented by: Fentanyl (Sublimaze) 50 mcg IV Q10MIN PRN PRN Reason: ANALGESIA Hydrophilic Ointment (Vaseline Lip Therapy) 1 applic TP Q2HR PRN PRN Reason: Dry Lips Sodium Chloride (Nacl 0.9% 1000 Ml) 1,000 mls @ 75 mls/hr IV DIRECT JOANA Ceftriaxone Sodium (Rocephin/Ns 2 Gm/100 Ml) 2 gm in 100 mls @ 200 mls/hr IV Q24HR JOANA; Protocol Last Admin: 08/14/19 13:05 Dose: 200 mls/hr Documented by: Fentanyl Citrate (Fentanyl Drip Premix) 2,000 mcg in 100 mls @ 2.87 mls/hr IV TITR JOANA; Protocol Last Admin: 08/14/19 10:55 Dose: 1 mcg/kg/hr, 2.87 mls/hr Documented by: Propofol (Diprivan 10 Mg/Ml) 1,000 mg in 100 mls @ 1.722 mls/hr IV TITR JOANA; Protocol Last Admin: 08/14/19 10:55 Dose: 5 mcg/kg/min, 1.722 mls/hr Documented by: Midazolam HCl 100 mg/ Sodium (Chloride) 100 mls @ 2 mls/hr IV TITR JOANA; Protocol Norepinephrine (Levophed Drip 4 Mg/Ns 250 Ml) 4 mg in 250 mls @ 7.5 mls/hr IV TITR JOANA; Protocol Last Admin: 08/14/19 11:00 Dose: 16 mcg/min, 60 mls/hr Documented by: Sodium Chloride (Nacl 0.9% 1000 Ml) 2,000 mls @ 999 mls/hr IV ONCE ONE Stop: 08/14/19 14:18 Last Admin: 08/14/19 13:05 Dose: 999 mls/hr Documented by: Lorazepam (Ativan) 2 mg IV Q10MIN PRN PRN Reason: Agitation Multi-Ingred Cream/Lotion/Oil/Oint (Artificial Tears Ophth Oint) 1 applic OU Q4HR PRN PRN Reason: Dry Eye(s) Ondansetron HCl (Zofran) 4 mg IV Q8H PRN PRN Reason: Nausea And Vomiting Sodium Chloride (Sodium Chloride Flush Syringe 10 Ml) 10 ml IV BID [facility] Last Admin: 08/14/19 13:05 Dose: 10 ml Documented by: Sodium Chloride (Sodium Chloride Flush Syringe 10 Ml) 10 ml IV PRN PRN PRN Reason: LINE FLUSH Review of Systems ROS unobtainable: due to endotracheal tube Physical Examination - Physical Exam Narrative exam: Physical exam deferred due to PPE conservation strategy. Reviewed in chart. Intubated and sedated. - Constitutional Vitals: Vital Signs Temp Pulse Resp BP Pulse Ox 101 F H 61 35 H 112/77 96 08/14/19 12:00 08/14/19 02:20 08/14/19 07:40 08/14/19 02:20 08/14/19 07:40 Temperature -Last 24 Hours Temperature 101 F Temperature 99.3 F Temperature 99.3 F Temperature 99.2 F Temperature 98.8 F Results - Labs CBC & Chem 7: 08/14/19 05:08 08/14/19 05:08 Labs: Abnormal lab results 08/13/19 08/13/19 08/13/19 Range/Units 21:09 21:09 22:07 WBC 18.1 H (4.5-11.0) K/mm3 RBC (3.65-5.03) M/mm3 Hgb 9.8 L (10.1-14.3) gm/dl Hct (30.3-42.9) % MCV 69 L (79-97) fl MCH 22 L (28-32) pg Plt Count 506 H (140-440) K/mm3 Lymph % (Auto) (13.4-35.0) % Lymph # (1.2-5.4) K/mm3 [place] # (0.0-0.8) K/mm3 Seg Neutrophils % (40.0-70.0) % Seg Neuts % (Manual) 90.0 H (40.0-70.0) % Lymphocytes % (Manual) 6.0 L (13.4-35.0) % Seg Neutrophils # (1.8-7.7) K/mm3 Seg Neutrophils # Man 16.3 H (1.8-7.7) K/mm3 Lymphocytes # (Manual) 1.1 L (1.2-5.4) K/mm3 PT (12.2-14.9) Sec. INR (0.87-1.13) APTT (24.2-36.6) Sec. D-Dimer (0-234) ng/mlDDU Sodium 131 L (137-145) mmol/L Chloride 94.9 L (98-107) mmol/L Carbon Dioxide (22-30) mmol/L BUN (7-17) mg/dL Glucose 122 H (65-100) mg/dL POC Glucose (70-105) Calcium (8.4-10.2) mg/dL Alkaline Phosphatase 288 H (35-129) units/L Lactate Dehydrogenase (91-180) units/L C-Reactive Protein (0.00-1.30) mg/dL Albumin 3.5 L (3.9-5) g/dL Urine pH 8.0 H (5.0-7.0) 08/14/19 08/14/19 08/14/19 Range/Units 00:15 00:15 05:08 WBC (4.5-11.0) K/mm3 RBC (3.65-5.03) M/mm3 Hgb (10.1-14.3) gm/dl Hct (30.3-42.9) % MCV (79-97) fl MCH (28-32) pg Plt Count (140-440) K/mm3 Lymph % (Auto) (13.4-35.0) % Lymph # (1.2-5.4) K/mm3 [place] # (0.0-0.8) K/mm3 Seg Neutrophils % (40.0-70.0) % Seg Neuts % (Manual) (40.0-70.0) % Lymphocytes % (Manual) (13.4-35.0) % Seg Neutrophils # (1.8-7.7) K/mm3 Seg Neutrophils # Man (1.8-7.7) K/mm3 Lymphocytes # (Manual) (1.2-5.4) K/mm3 PT 48.1 H 47.9 H (12.2-14.9) Sec. INR 5.48 H* 5.45 H* (0.87-1.13) APTT 119.1 H* 119.5 H* (24.2-36.6) Sec. D-Dimer 960.34 H 1104.80 H (0-234) ng/mlDDU Sodium (137-145) mmol/L Chloride (98-107) mmol/L Carbon Dioxide (22-30) mmol/L BUN (7-17) mg/dL Glucose 120 H (65-100) mg/dL POC Glucose (70-105) Calcium (8.4-10.2) mg/dL Alkaline Phosphatase (35-129) units/L Lactate Dehydrogenase 193 H (91-180) units/L C-Reactive Protein 22.00 H (0.00-1.30) mg/dL Albumin (3.9-5) g/dL Urine pH (5.0-7.0) 08/14/19 08/14/19 08/14/19 Range/Units 05:08 05:08 05:08 WBC 16.2 H (4.5-11.0) K/mm3 RBC 3.50 L (3.65-5.03) M/mm3 Hgb 8.1 L (10.1-14.3) gm/dl Hct 24.3 L D (30.3-42.9) % MCV 69 L (79-97) fl MCH 23 L (28-32) pg Plt Count (140-440) K/mm3 Lymph % (Auto) 5.3 L (13.4-35.0) % Lymph # 0.9 L (1.2-5.4) K/mm3 [place] # 1.0 H (0.0-0.8) K/mm3 Seg Neutrophils % 88.0 H (40.0-70.0) % Seg Neuts % (Manual) (40.0-70.0) % Lymphocytes % (Manual) (13.4-35.0) % Seg Neutrophils # 14.2 H (1.8-7.7) K/mm3 Seg Neutrophils # Man (1.8-7.7) K/mm3 Lymphocytes # (Manual) (1.2-5.4) K/mm3 PT (12.2-14.9) Sec. INR (0.87-1.13) APTT (24.2-36.6) Sec. D-Dimer (0-234) ng/mlDDU Sodium 134 L (137-145) mmol/L Chloride (98-107) mmol/L Carbon Dioxide 21 L (22-30) mmol/L BUN 6 L (7-17) mg/dL Glucose 130 H (65-100) mg/dL POC Glucose (70-105) Calcium 8.3 L (8.4-10.2) mg/dL Alkaline Phosphatase (35-129) units/L Lactate Dehydrogenase 196 H (91-180) units/L C-Reactive Protein 21.20 H (0.00-1.30) mg/dL Albumin (3.9-5) g/dL Urine pH (5.0-7.0) /11/25 Range/Units 07:51 WBC (4.5-11.0) K/mm3 RBC (3.65-5.03) M/mm3 Hgb (10.1-14.3) gm/dl Hct (30.3-42.9) % MCV (79-97) fl MCH (28-32) pg Plt Count (140-440) K/mm3 Lymph % (Auto) (13.4-35.0) % Lymph # (1.2-5.4) K/mm3 [place] # (0.0-0.8) K/mm3 Seg Neutrophils % (40.0-70.0) % Seg Neuts % (Manual) (40.0-70.0) % Lymphocytes % (Manual) (13.4-35.0) % Seg Neutrophils # (1.8-7.7) K/mm3 Seg Neutrophils # Man (1.8-7.7) K/mm3 Lymphocytes # (Manual) (1.2-5.4) K/mm3 PT (12.2-14.9) Sec. INR (0.87-1.13) APTT (24.2-36.6) Sec. D-Dimer (0-234) ng/mlDDU Sodium (137-145) mmol/L Chloride (98-107) mmol/L Carbon Dioxide (22-30) mmol/L BUN (7-17) mg/dL Glucose (65-100) mg/dL POC Glucose 130 H (70-105) Calcium (8.4-10.2) mg/dL Alkaline Phosphatase (35-129) units/L Lactate Dehydrogenase (91-180) units/L C-Reactive Protein (0.00-1.30) mg/dL Albumin (3.9-5) g/dL Urine pH (5.0-7.0) Assessment and Plan Cultures: Blood culture 08/13/2019 pending A/P: 39 yo F PMhx mechanical mitral valve replacement admitted with concern for COVID #Multifocal pneumonia: Agree with testing for COVID-19. Please obtain and follow-up results swab. Continue isolation precautions per hospital protocol. If positive will follow inflammatory markers she does have an elevated procalcitonin, as such continue empiric antibiotics for now. No recent admissions, no real risk factors for resistant disease at this point. #Mechanical mitral valve replacement: Anticoagulation per primary. Follow-up blood cultures. Recs: -Obtain and follow-up testing for COVID-19 -Continue isolation precautions per hospital protocol -Stopped ceftriaxone and started cefepime for now. -Follow-up blood cultures Thank you for the consult, we will continue to follow. Ifrah Pino MD [facility] ([facility] M: [phone] O: [phone] F: [phone]
[2019-08-14 13:59] LABS: ABG Base Excess -16.6 mmol/L (-2.0-3.0); ABG Methemoglobin 0.5 % (0.0-1.5); ABG Oxygen Saturation 93.6 % (95.0-99.0); ABG PO2 98.8 mm Hg (80.0-90.0)
[2019-08-14 14:22] LABS: ABG PH 7.085 pH Units (7.350-7.450)
[2019-08-14] MEDS ORDERED: SODIUM BICARB 8.4% 50 MEQ/50 ML SYRINGE IV ONE ×2 (15:02→19:52)
[2019-08-14] MEDS: CEFEPIME/NS 2 GM/100 ML 2 GM/100 ML BAG IV SCH ×2 (15:16→21:56)
[2019-08-14] MEDS ORDERED: SODIUM CHLORIDE 0.9% 500 ML 500 ML IV ONE ×3 (15:28→22:30)
--- NOTE | 2019-08-14 15:44 | Event Note ---
Date: 08/14/19 I discussed the case with yard demurrage clerk and requested consult Recommended FFP's, as patient has bleeding episodes, and once the INR comes down to Start heparin drip per protocol. 2 units of FFP's ordered, informed the nurse Frequent checks of INR.
[2019-08-14 16:03] LABS: Hematocrit 21.7 % (30.3-42.9); Hemoglobin 6.8 gm/dl (10.1-14.3); Mean Corpuscular HGB Conc 31 % (30-34); Mean Corpuscular Volume 72 fl (79-97); Platelet Count 441 K/mm3 (140-440); Red Cell Distribution Width 14.9 % (13.2-15.2)
--- NOTE | 2019-08-14 16:13 | Consultation ---
History of Present Illness Consult date: 08/14/19 Consult reason: other (Mechanical mitral valve) History of present illness: The patient is a 39-year-old woman with a mechanical valve replacement, who is admitted to the hospital with respiratory failure and bilateral pneumonia, high suspicion for COVID-19. The chest x-ray shows extensive bilateral infiltrates. She is currently on the ventilator in the ICU, heart rate 113 sinus tachycardia, blood pressure 99 systolic on Levophed pressor support. Cardiology consultation was requested for assessment and management of her cardiac status. The patient has a history of mechanical mitral valve replacement, on chronic warfarin therapy. Three days ago, an outpatient INR was supratherapeutic at 8. Today, the INR remains elevated at greater than 5. EKG is sinus rhythm with a nonspecific intraventricular conduction delay and nonspecific ST and T wave abnormality. Past History Past Medical History: other (Valvular heart disease) Past Surgical History: valve replacement Social history: other (unknown) Family history: other (unknown) Medications and Allergies Allergies Allergy/AdvReac Type Severity Reaction Status Date / Time No Known Allergies Allergy Verified 08/13/19 23:57 Active Meds: Active Medications Acetaminophen (Tylenol) 650 mg PO Q4H PRN PRN Reason: Pain MILD(1-3)/Fever >100.5/DOWNING Albuterol (Proventil) 2.5 mg IH Q4HRT PRN PRN Reason: Shortness Of Breath Famotidine (Pepcid) 20 mg IV BID JOANA Last Admin: 08/14/19 13:04 Dose: 20 mg Documented by: Fentanyl (Sublimaze) 50 mcg IV Q10MIN PRN PRN Reason: ANALGESIA Hydrophilic Ointment (Vaseline Lip Therapy) 1 applic TP Q2HR PRN PRN Reason: Dry Lips Fentanyl Citrate (Fentanyl Drip Premix) 2,000 mcg in 100 mls @ 2.87 mls/hr IV TITR JOANA; Protocol Last Titration: 08/14/19 11:45 Dose: 4 mcg/kg/hr, 11.48 mls/hr Documented by: Propofol (Diprivan 10 Mg/Ml) 1,000 mg in 100 mls @ 1.722 mls/hr IV TITR JOANA; Protocol Last Titration: 08/14/19 12:10 Dose: 30 mcg/kg/min, 10.332 mls/hr Documented by: Midazolam HCl 100 mg/ Sodium (Chloride) 100 mls @ 2 mls/hr IV TITR JOANA; Protocol Norepinephrine (Levophed Drip 4 Mg/Ns 250 Ml) 4 mg in 250 mls @ 7.5 mls/hr IV TITR JOANA; Protocol Last Titration: 08/14/19 15:34 Dose: 14 mcg/min, 52.5 mls/hr Documented by: Cefepime HCl (Cefepime/Ns 2 Gm/100 Ml) 2 gm in 100 mls @ 200 mls/hr IV Q8HR JOANA; Protocol Last Admin: 08/14/19 15:16 Dose: 200 mls/hr Documented by: Sodium Bicarbonate 75 meq/ (Dextrose) 1,075 mls @ 150 mls/hr IV DIRECT JOANA Lorazepam (Ativan) 2 mg IV Q10MIN PRN PRN Reason: Agitation Multi-Ingred Cream/Lotion/Oil/Oint (Artificial Tears Ophth Oint) 1 applic OU Q4HR PRN PRN Reason: Dry Eye(s) Ondansetron HCl (Zofran) 4 mg IV Q8H PRN PRN Reason: Nausea And Vomiting Sodium Chloride (Sodium Chloride Flush Syringe 10 Ml) 10 ml IV BID JOANA Last Admin: 08/14/19 13:05 Dose: 10 ml Documented by: Sodium Chloride (Sodium Chloride Flush Syringe 10 Ml) 10 ml IV PRN PRN PRN Reason: LINE FLUSH Review of Systems ROS unobtainable: due to endotracheal tube, due to mental status Physical Examination Vital Signs Temp Pulse Resp BP Pulse Ox 98.8 F 98 H 24 108/69 99 08/13/19 20:22 08/13/19 20:22 08/13/19 20:22 08/13/19 20:22 08/13/19 20:22 Narrative exam: Full physical exam on this patient was deferred due to the status of COVID-19 under suspicion. Results 08/14/19 15:38 08/14/19 05:08 Cardiac Enzymes 08/13/19 08/14/19 08/14/19 Range/Units 21:09 00:15 05:08 AST 29 (5-40) units/L Lactate Dehydrogenase 193 H 196 H (91-180) units/L Coagulation 08/14/19 08/14/19 Range/Units 00:15 05:08 PT 48.1 H 47.9 H (12.2-14.9) Sec. INR 5.48 H* 5.45 H* (0.87-1.13) APTT 119.1 H* 119.5 H* (24.2-36.6) Sec. CBC 08/13/19 08/14/19 08/14/19 Range/Units 21:09 05:08 15:38 WBC 18.1 H 16.2 H 30.4 H (4.5-11.0) K/mm3 RBC 4.42 3.50 L 3.00 L (3.65-5.03) M/mm3 Hgb 9.8 L 8.1 L 6.8 L (10.1-14.3) gm/dl Hct 30.5 24.3 L D 21.7 L (30.3-42.9) % Plt Count 506 H 427 441 H (140-440) K/mm3 Lymph # 0.9 L (1.2-5.4) K/mm3 [place] # 1.0 H (0.0-0.8) K/mm3 Eos # 0.0 (0.0-0.4) K/mm3 Baso # 0.0 (0.0-0.1) K/mm3 Comprehensive Metabolic Panel 08/13/19 08/14/19 08/14/19 Range/Units 21:09 00:15 05:08 Sodium 131 L 134 L (137-145) mmol/L Potassium 4.0 4.2 (3.6-5.0) mmol/L Chloride 94.9 L 100.2 (98-107) mmol/L Carbon Dioxide 23 21 L (22-30) mmol/L BUN 7 6 L (7-17) mg/dL Creatinine 0.7 0.7 (0.7-1.2) mg/dL Glucose 122 H 120 H 130 H (65-100) mg/dL Calcium 8.6 8.3 L (8.4-10.2) mg/dL AST 29 (5-40) units/L ALT 24 (7-56) units/L Alkaline Phosphatase 288 H (35-129) units/L Total Protein 7.7 (6.3-8.2) g/dL Albumin 3.5 L (3.9-5) g/dL EKG interpretations - Telemetry EKG Rhythm: Sinus Rhythm Assessment and Plan - Patient Problems (1) H/O mitral valve replacement with mechanical valve Current Visit: Yes Status: Acute Plan to address problem: The patient admitted with respiratory failure and bilateral severe pneumonia. Currently on supportive care in the ICU on the ventilator. The patient is on chronic Coumadin, currently coagulopathic with an INR greater than 5. The patient needs to be on continuous anticoagulation for her mechanical mitral valve. Anticoagulation status in the ICU will be better managed with short acting heparin, so it would be prudent to reverse Coumadin with fresh frozen plasma and maintain anticoagulation status with heparin. Risks and benefits of continued anticoagulation should also be considered in this patient's acute setting. We note that she has marked anemia with a hematocrit today of 21. Therefore after reversal of warfarin, heparin should be used judiciously with regards to possible bleeding risk. Otherwise conservative cardiac management, we will follow intermittently.
[2019-08-14 16:26] LABS: Albumin 2.4 g/dL (3.9-5)
[2019-08-14 16:36] LABS: Calcium 7.7 mg/dL (8.4-10.2)
[2019-08-14] MEDS ORDERED: DEXTROSE 50% IN WATER (25GM) 50 ML SYRINGE IV ONE ×2 (16:51→18:00)
[2019-08-14] MEDS ORDERED: DEXTROSE 50% IN WATER (25GM) 50 ML SYRINGE IV PRN (16:51)
[2019-08-14] MEDS ORDERED: DEXTROSE 10% IN WATER 1,000 ML IV SCH (17:00)
[2019-08-14] MEDS: SODIUM BICARBONATE 75 MEQ in DEXTROSE 5% IN WATER 1,000 ML IV SCH ×2 (17:00→23:52)
[2019-08-14 17:42] LABS: Basophils % (Manual) 0 % (0.0-1.8); Eosinophils % (Manual) 0 % (0.0-4.3); Hypochromasia Few; Macrocytosis Few; Ovalocytes 1+; Target Cells Rare; Total Cells Counted 100
[2019-08-14 17:43] LABS: Platelet Estimate Consistent w Auto; Schistocytes Rare
[2019-08-14] MEDS ORDERED: VASOPRESSIN 20 UNIT in SODIUM CHLORIDE 0.9% 100 ML IV SCH (19:00)
--- NOTE | 2019-08-14 19:21 | Event Note ---
Date: 08/14/19 I spoke with the patient's stepdaughter in [place], patient's critical condition, test reports, consultants recommendations the treatment plan and the Poor prognosis, I answered all her questions, I encouraged her to convey this information To her dad, the patient's and call back with any questions or concerns.
[2019-08-14 21:17] VITALS: BP 146/99
[2019-08-14] MEDS ORDERED: SODIUM CHLORIDE 0.9% 500 ML 500 ML ONE (21:48)
[2019-08-14 22:27] LABS: INR 6.51 (0.87-1.13); Partial Thromboplastin Time 77.9 Sec. (24.2-36.6)
--- NOTE | 2019-08-14 22:30 | Event Note ---
CODE BLUE x2 Initial rhythm PEA ACLS protocol initiated, please refer to the code sheet for details +ROSC, Rapid transfuser will be used to give blood Patient is still coagulopathy, transfuse 2 additional FFP Spoke with family, family updated
[2019-08-14 23:16] LABS: Bacteria,Urine 2+ /HPF (Negative); Bilirubin,Urine NEG (Negative); Blood,Urine MOD (Negative); Color,Urine Amber (Yellow); Mucus,Urine 2+ /HPF; Urobilinogen,Urine < 2.0 mg/dL (<2.0)
[2019-08-14 23:18] LABS: Amphetamine Screen,Urine PRESUMPTIVE NEGATIVE; Benzodiazepines Screen,Urine PRESUMPTIVE NEGATIVE; Cannabinoid Screen,Urine PRESUMPTIVE NEGATIVE; Cocaine Screen,Urine PRESUMPTIVE NEGATIVE; Methadone Screen,Urine PRESUMPTIVE NEGATIVE; Opiate Screen,Urine PRESUMPTIVE NEGATIVE
[2019-08-14] MEDS ORDERED: SODIUM CHLORIDE 0.9% 1000 ML 1,000 ML ONE (23:58)
[2019-08-15] MEDS ORDERED: PHENYLEPHRINE 100 MG in SODIUM CHLORIDE 0.9% 90 ML IV SCH (00:15)
[2019-08-15] MEDS ORDERED: SODIUM BICARB 8.4% 50 MEQ/50 ML SYRINGE IV ONE (00:18)
[2019-08-15] MEDS ORDERED: EPINEPHrine 1:10,000 1 MG/10 ML SYRINGE ONE (00:18)
[2019-08-15] MEDS ORDERED: EPINEPHrine 1:1000 8 MG in SODIUM CHLORIDE 0.9% 250ML 242 ML IV SCH (01:00)
--- NOTE | 2019-08-15 01:21 | Event Note ---
CODE BLUE #3 Initial rhythm PEA, ACLS protocol was initiated please refer to the code sheet for details There was no ROSC, time of 2893
[2019-08-15 01:29] LABS: Calcium 7.4 mg/dL (8.4-10.2)
--- NOTE | 2019-08-15 07:52 | Death Summary ---
Summary - Providers Date of service: 08/15/19 Consults: 08/14/19 00:14 Consult to Physician [CONS] Routine Comment: Consulting Provider: MACARIO CAICEDO Physician Instructions: Reason For Exam: covid, maria 08/14/19 08:02 Consult to Physician [CONS] Routine Comment: Consulting Provider: MARTHA HAIRSTON Physician Instructions: Reason For Exam: Ac.Resp failure/alphonse pneum/?Covid 19 pulm/Cr care 08/14/19 09:19 Consult to Dietitian/Nutrition [CONS] Routine Physician Instructions: Reason For Exam: Reason for Consult: Evaluate nutritional intake 08/14/19 15:22 Consult to Physician [CONS] Routine Comment: Consulting Provider: MONALISA ALEJO Physician Instructions: Reason For Exam: Mechanical mitral valve/high INR Attending: ALANNA GODFREY - summary Date of admission: 08/13/19 23:54 Date of : 08/15/19
[2019-08-15] MEDS ORDERED: PANTOPRAZOLE 40 MG INJ IV SCH (10:00)
== END 2019-08-15 01:09 | disposition home or self-care (01) | DRG 871 ==
LOC: ED 20:13 → IMCU 23:54 → CC1 08-14 09:02
PROVIDERS: ADMIT Internal Medicine; ATTEND Internal Medicine
PROC: 5A1935Z Respiratory Ventilation, Less than 24 Consecutive Hours (ICD-10-PCS; principal; 2019-08-14)
PROC: 30233K1 Transfusion of Nonautologous Frozen Plasma into Peripheral Vein, Percutaneous Approach (ICD-10-PCS; 2019-08-14)
PROC: 30233N1 Transfusion of Nonautologous Red Blood Cells into Peripheral Vein, Percutaneous Approach (ICD-10-PCS; 2019-08-14)
PROC: 4A033R1 Measurement of Arterial Saturation, Peripheral, Percutaneous Approach (ICD-10-PCS; 2019-08-14)
PROC: 02HV33Z Insertion of Infusion Device into Superior Vena Cava, Percutaneous Approach (ICD-10-PCS; 2019-08-14)
PROC: B548ZZA Ultrasonography of Superior Vena Cava, Guidance (ICD-10-PCS; 2019-08-14)
PROC: 0BH17EZ Insertion of Endotracheal Airway into Trachea, Via Natural or Artificial Opening (ICD-10-PCS; 2019-08-15)
DX: A41.9 Sepsis, unspecified organism (principal); J18.9 Pneumonia, unspecified organism; J96.01 Acute respiratory failure with hypoxia; D68.9 Coagulation defect, unspecified; D64.9 Anemia, unspecified; Z82.49 Family history of ischemic heart disease and other diseases of the circulatory system; Z20.828 Contact with and (suspected) exposure to other viral communicable diseases
CPT/HCPCS: 36415; 36600; 71045; 71275; 74018; 80048; 80053; 80307; 81001; 81025; 82140; 82728; 82803; 82947; 82962; 83615; 83735; 83880; 84100; 84145; 84484; 85007; 85025; 85379; 85610; 85730; 86140; 86850; 86900; 86901; 86920; 87040; 87070; 87086; 87205; 93005; 94002; 94003; 94660; 94760; G0378; J0171; J0330; J0456; J0692; J0696; J2060; J2250; J2370; J2704; J3010; J7030; J7040; J7050; J7070; P9016; P9017; Q9967; U0003